=== PATIENT | female | born 1955 | race African-American/Black ===

== ENCOUNTER → 2019-12-09 | Outpatient (CLI) | payer OTHER ==
--- NOTE | 2019-12-09 10:42 | KCIC ---
Bilateral diagnostic digital mammograms: Reason for examination: Right upper inner quadrant breast pain and diffuse shooting pain in the left breast for 4 to 5 months. Comparison is made to previous study dated 08/04/2010. Interpretation was made with the benefit of CAD. The skin and nipples show no abnormalities. No abnormal axillary lymph nodes are seen. The breast parenchyma shows scattered fibroglandular density. (Breast density: Category B.) There continues to be a small nodule consistent with an intramammary lymph node at the 2:00 B position of the left breast. There are no other dominant masses, suspicious calcifications or architectural distortions. Some benign calcifications are present. Impression: No evidence of malignancy. Ultrasound to follow. BI-RADS category 0: Incomplete. Needs additional imaging evaluation. Bilateral breast ultrasound: Comparison is made to previous study dated 08/04/2010. Bilateral whole breast ultrasound including evaluation of all 4 quadrants and the retroareolar and axillary regions of both breasts was performed. In the right breast, there continues to be a 6.7 mm circumscribed nodule at the 12:00 position 3 cm from the nipple consistent fibroadenoma which is stable. In the 2:00 position 6.5 cm from the nipple, there is a small 5.3 mm fibrocystic lesion. In the 6:00 position 4 cm from the nipple, there is a 3.9 mm hypoechoic fibrocystic type lesion. No suspicious nodules are seen. No abnormal appearing lymph nodes are seen in the right axilla. In the left breast, there is an intramammary lymph node at the 2:30 position 5 cm from the nipple measuring 5.7 mm in greatest dimension which corresponds to the mammographic finding. There is a small 4.2 mm hypoechoic fibrocystic lesion at the 11:00 position 3 cm from the nipple. No suspicious lesions are seen. No abnormal appearing lymph nodes are seen in the left axilla. IMPRESSION: Small benign-appearing fibrocystic type lesions bilaterally. 6.7 mm nodule at the 12:00 position of the right breast probably representing fibroadenoma which is stable. Recommend 6 month follow-up with ultrasound. BI-RADS Category 3: Probably Benign. "Our facility is accredited by the [employer] Mammography Program." This patient's information has been entered into a reminder system for the patient to be notified with the results of her examination and a target date for the next mammogram. Electronically signed by: Jadyn Pereira MD (12/09/2019 10:39 AM) [id number]
== END | disposition home or self-care (01) ==
LOC: KCIC MAMMO 08:56
PROVIDERS: ATTEND Family Medicine
DX: N64.89 Other specified disorders of breast (principal)
CPT/HCPCS: 76641; 77066

== ENCOUNTER → 2020-07-09 | Outpatient (CLI) | payer OTHER ==
--- NOTE | 2020-07-09 15:46 | KCIC ---
EXAM: DUAL ENERGY X-RAY ABSORPTIOMETRY (DEXA). HISTORY: Postmenopausal screening. FINDINGS: The lowest measured T-score is 0.7 in the left femur, based on a bone mineral density of 1.025 g/cm^2. Refer to the worksheets for full detail. No comparison examinations are available. IMPRESSION: Normal. Bone mineral density yields a T-score of -1.0 or greater. Fracture risk is low. FRAX was not calculated. METHODOLOGY: Dual energy x-ray absorptiometry was performed to measure bone mineral density. The following analysis is based on the 2019 Official Positions of the International Society for Clinical Densitometry: Measurements of the hips and the average of L1-L4 are preferred. When the spine and/or hip cannot be feasibly measured or interpreted, or in the setting of hyperparathyroidism, distal radial bone mineral density may be measured. The lumbar spine T-score is based on the average bone mineral density of L1-L4. In the setting of artifact or anatomic abnormality, some lumbar levels may be excluded, and the remaining levels used for calculation. A single lumbar level is not used for diagnosis, and if only a single level is available for assessment, another anatomic site will be used to assign a diagnosis. The hip T-score is based on the bone mineral density measurement of the femoral neck or total proximal femur of either side, whichever is lowest. Bilateral mean values are not used for diagnosis. The forearm T-score is derived from 33% of the distal radius of the nondominant forearm. For postmenopausal and perimenopausal women, and men age 50 or older, of all ethnic groups, T-scores are calculated through comparison of the current measurement with the NHANES III database standard for females aged 20-29 years. The lowest T-score of the evaluated anatomic sites is used to assign a diagnosis based on the World Health Organization densitometric classification. In premenopausal females and males younger than age 50, a Z-score is calculated based on population specific reference data for patient sex and self-reported ethnicity. Electronically signed by: Pepe Dia MD (07/09/2020 3:43 PM) [facility]ITALMar[facility]
== END | disposition home or self-care (01) ==
LOC: KCIC DEXA 13:16
PROVIDERS: ATTEND Family Medicine
DX: Z13.820 Encounter for screening for osteoporosis (principal); Z78.0 Asymptomatic menopausal state
CPT/HCPCS: 77080

== ENCOUNTER → 2021-03-02 | Outpatient (CLI) | payer OTHER ==
--- NOTE | 2021-03-02 14:57 | KCIC ---
Bilateral diagnostic digital mammograms with 3-D tomosynthesis: Reason for examination: Follow-up nodules. Comparison is made to previous studies dated 12/09/2019 and 08/04/2010. Bilateral mammograms in CC and oblique projections were obtained with 2-D imaging and 3-D tomosynthes is imaging on a Siemens Inspiration unit and reviewed on the workstation. Interpretation was made wit h the benefit of CAD. The skin and nipples show no abnormalities. No abnormal axillary lymph nodes are seen. The breast par enchyma shows scattered fatty and fibroglandular density. (Breast density: Category B.) There continu e to be small nodular parenchymal asymmetries bilaterally which are stable. There are no new dominant masses, suspicious calcifications or architectural distortion. Benign calcifications are present. Impression: No change in the small nodular asymmetries seen bilaterally. Ultrasound to follow. BI-RAD Category 0: Incomplete. Needs additional imaging evaluation. Bilateral breast ultrasound: Comparison is made to previous study dated 12/09/2019. Ultrasound examination was performed bilaterally of the breasts and axilla. The right breast show a 6.9 x 5.1 mm nodule at the 12:00 position 3 cm from the nipple which is stabl e and consistent with a probable fibroadenoma with some mild posterior acoustic enhancement. There co ntinue to be some minimal fibrocystic changes at the 2:00 position 6.5 cm in size measuring 5.1 x 4.1 mm in greatest dimension. No other cystic or solid lesions are seen. No abnormal appearing lymph nod es are seen in the right axilla. In the left breast at the 2:30 position 5 cm from the nipple measuring 4.6 mm in size there is a smal l intramammary lymph node which is stable. There continues to be a small 3.8 mm hypoechoic fibrocysti c lesion at the 11:00 position 3 cm from the nipple. No other cystic or solid lesions are seen. No ab normal appearing lymph nodes are seen in the left axilla. IMPRESSION: Stable fibroadenomatous and fibrocystic type lesions seen bilaterally. Small intramammary lymph node at the 2:30 position of the left breast. No suspicious abnormalities are seen. Recommend routine mamm ographic follow-up. BI-RADS Category 2: Benign. "Our facility is accredited by the [employer] Mammography Program." This patient's information has been entered into a reminder system for the patient to be notified wit h the results of her examination and a target date for the next mammogram. Electronically signed by: Jadyn Pereira MD (03/02/2021 2:55 PM) [email or web address]
== END ==
LOC: KCIC MAMMO 12:51
PROVIDERS: ATTEND Family Medicine
DX: N63.12 Unspecified lump in the right breast, upper inner quadrant (principal); N63.21 Unspecified lump in the left breast, upper outer quadrant; N60.01 Solitary cyst of right breast; N60.02 Solitary cyst of left breast
CPT/HCPCS: 76641; 77066; G0279; 77062

== ENCOUNTER → 2021-11-15 | Outpatient (CLI) | payer OTHER ==
--- NOTE | 2021-11-15 14:04 | KCIC ---
EXAM: Chest, 2 views. HISTORY: Cough. COMPARISON: None. FINDINGS: 2 views of the chest are obtained. There is no infiltrate, pleural infusion or pneumothorax . The heart is normal in size. There are surgical clips within the upper abdomen. IMPRESSION: No acute pulmonary finding. Electronically signed by: Ellie Dos Santos MD (11/15/2021 2:01 PM) [id number]
== END ==
LOC: KCIC 12:51
PROVIDERS: ATTEND Family Medicine
DX: R05.3 Chronic cough (principal); Z98.890 Other specified postprocedural states
CPT/HCPCS: 71046